=== PATIENT | male | born 1985 | race Caucasian/White ===

== ENCOUNTER 2020-11-02 06:08 | Day surgery (SDC) | payer OTHER ==
[2020-11-02] MEDS ORDERED: DEXMEDETOMIDINE 400 MCG/100 ML IV ONE (06:09)
[2020-11-02] MEDS ORDERED: ceFAZolin 2 GM/50 ML 2 GM/50 ML BAG IV ONE (06:30)
[2020-11-02] MEDS ORDERED: LACTATED RINGERS 1,000 ML IV ONE (06:47)
[2020-11-02] MEDS ORDERED: KETOROLAC 30 MG/ML VIAL ONE (07:06)
[2020-11-02] MEDS ORDERED: ROCURONIUM 50 MG/5 ML VIAL ONE (07:06)
[2020-11-02] MEDS ORDERED: LIDOCAINE-MPF 2% 5 ML VIAL ONE (07:06)
[2020-11-02] MEDS ORDERED: ROPIVACAINE 0.5% PF 20 ML AMPULE ONE (07:06)
[2020-11-02] MEDS ORDERED: PROPOFOL 200 MG/20 ML VIAL IVP ONE (07:06)
[2020-11-02] MEDS ORDERED: ONDANSETRON 4 MG/2 ML VIAL ONE (07:06)
[2020-11-02] MEDS ORDERED: DEXAMETHASONE 4 MG/ML VIAL ONE (07:06)
[2020-11-02] MEDS ORDERED: LIDOCAINE-PF 2% 10 ML AMP SUBQ ONE (07:06)
[2020-11-02] MEDS ORDERED: SODIUM CHLORIDE 0.9% 10 ML ONE (07:12)
--- NOTE | 2020-11-02 07:13 | ANESTHESIA ---
Pre-Anesthesia VS, & Labs - Diagnosis left knee acl tear, meniscus tear - Procedure left knee arthroscopy, meniscus repair or removal Vital Signs: Temp Pulse Resp BP Pulse Ox 36.4 C L 68 16 129/85 H 99 11/02/20 07:02 11/02/20 07:02 11/02/20 07:02 11/02/20 07:02 11/02/20 07:02 Height: 5 ft 9 in Weight (kg): 122.47 kg Body Mass Index: 39.9 BMI Classification: Obese - NPO >8 hours Home Medications and Allergies Home Medications: Ambulatory Orders No Known Home Medications 10/28/20 No Known Home Medications 10/28/20 Allergies/Adverse Reactions: Allergies Allergy/AdvReac Type Severity Reaction Status Date / Time No Known Drug Allergies Allergy Verified 10/28/20 10:54 Anes History & Medical History - Anesthetic History Anesthesia Complications: reports: No previous complications - Medical History Cardiovascular: reports: None Pulmonary: reports: Sleep apnea, CPAP use Gastrointestinal: reports: None Urinary: reports: None Musculoskeletal: reports: Other Endocrine/Autoimmune: reports: None Skin: reports: None - Surgical History Orthopedic: ACL reconstruction Exam General: Alert Dental: WNL Mouth Opening: Greater than 4 Fingerbreadths Mallampati classification: II Thyromental Distance: greater than 6 cm Respiratory: Lungs clear Cardiovascular: Regular rate Plan Anesthesia Type: General, Adductor Block Consent for Procedure(s) Verified and Reviewed: Yes Code Status: Attempt Resuscitation ASA classification: 2-Mild systemic disease Is this case an emergency?: No
[2020-11-02] MEDS ORDERED: MIDAZOLAM 2 MG/2 ML VIAL ONE (07:20)
[2020-11-02] MEDS ORDERED: fentaNYL 100 MCG/2 ML VIAL ONE ×3 (07:20→10:31)
[2020-11-02] MEDS ORDERED: BUPIVACAINE 0.25% PF 30 ML VIAL ONE (07:22)
[2020-11-02] MEDS ORDERED: EPINEPHrine 1 MG/ML AMP ONE (07:22)
[2020-11-02] MEDS ORDERED: ePHEDrine 50 MG/ML VIAL IVP PRN (08:15)
[2020-11-02] MEDS ORDERED: METOCLOPRAMIDE 10 MG/2 ML VIAL IVP PRN (08:15)
[2020-11-02] MEDS ORDERED: NALOXONE 0.4 MG/ML VIAL IVP PRN (08:15)
[2020-11-02] MEDS ORDERED: HYDROmorphone 0.5 MG/0.5 ML SYRINGE IVP PRN (08:15)
[2020-11-02] MEDS ORDERED: MORPHINE 2 MG/ML CARPUJECT IVP PRN (08:15)
[2020-11-02] MEDS ORDERED: fentaNYL 100 MCG/2 ML VIAL IVP PRN (08:15)
[2020-11-02] MEDS ORDERED: ONDANSETRON 4 MG/2 ML VIAL IVP PRN ×2 (08:15→13:04)
[2020-11-02] MEDS ORDERED: ATROPINE ABBOJECT 1 MG/10 ML SYRINGE IVP PRN (08:15)
[2020-11-02] MEDS ORDERED: EPINEPHrine 1 MG/ML AMP IR ONE (08:19)
[2020-11-02] MEDS ORDERED: BUPIVACAINE 0.25% PF 30 ML VIAL SUBQ ONE (08:19)
[2020-11-02] MEDS ORDERED: LACTATED RINGERS 1,000 ML IV SCH (09:00)
[2020-11-02] MEDS ORDERED: ALBUTEROL 1 PUFF INH ONE ×2 (10:31→12:44)
[2020-11-02] MEDS ORDERED: oxyCODONE 5 MG TABLET PO PRN (13:04)
--- NOTE | 2020-11-02 13:23 | OPERATIVE REPORT ---
Operative Report - Other Other Information/Narrative: Date of Surgery: 02 November 2020 Pre-Op Diagnosis: Left ACL graft failure. Left knee arthritis. Left knee instability. Procedure: Left knee arthroscopy with chondroplasty of the trochlea, patella, medial femoral condyle. Lateral meniscus debridement. Femoral tunnel drilling and bone grafting. Tibial tunnel drilling and bone grafting. Postop Diagnosis: Same as above. Add a lateral meniscus tear. Primary Surgeon: Bernabe Huerta Secondary Surgeon: None Complications: None Tourniquet Time: 130 minutes EBL: 150 mL Indication For Surgery: 35-year-old male who is status post left ACL reconstruction in 2015 with allograft. He has subsequently developed instability. On preoperative evaluation his tunnels appear to be in good position but they were dilated. He additionally has significant osteoarthritic changes within his knee. I discussed with him that his stiffness and pain are likely to progress due to his osteoarthritis, but his instability may improve with ACL reconstruction. He is unstable with daily activities and desires surgery. I explained to him that a single-stage surgery is possible but due to his dilation two-stage surgery is planned. The risks, benefits, and alternatives were discussed. Risks include pain, bleeding, infection, damage to nearby structures and cartilage, lack of symptom relief, need for further surgery, DVT, PE, stroke, and . Written consent was obtained. Examination Under Anesthesia: ROM equal to the contralateral side. Stable dial at 30 & 90 degrees. Stable to varus and valgus stressing at 0 & 30 degrees. Unstable Ziggy. Unstable Pivot shift. No mechanical sensation Arthroscopic Findings: Loose bodies -small soft cartilage loose bodies were found and removed. Synovium -normal Patella cartilage -2 full-thickness cartilage fissures with mostly stable cartilage surrounding it, the edges of the fissures were debrided with a shaver Trochlear cartilage -there was a 20 mm long by 5 mm at the top and 8 mm distal full-thickness cartilage lesion centrally, the unstable borders were trimmed. Medial femoral condyle cartilage -there was a large full-thickness lesion measuring 20 mm long by 10 to 12 mm wide in the medial femoral condyle at near full extension. Marginal osteophytes were present Medial tibial plateau cartilage -largely intact. There was some softening and partial thickness cartilage loss Medial meniscus -no tear. The root was intact. Anterior cruciate ligament -the graft was completely torn. The tunnels were drilled out and the tibial tunnel looked good at 11 mm in the femoral tunnel had good borders at 13 mm. The tunnels were grafted with bone dowels and DBX Posterior cruciate ligament -normal Lateral femoral condyle cartilage -there was an area of partial-thickness cartilage loss peripherally on the femoral condyle that measured 15 mm x 10 mm, the borders were stable and no debridement was necessary Lateral tibial plateau cartilage -there was partial loss posteriorly but it was largely intact Lateral meniscus -there was some degenerative change in the posterior horn with loose fragments and this was debrided. The lateral root was intact. Procedure in Detail: The patient was met in the pre-operative hold area on the day of the procedure. The operative extremity was signed and questions were answered. The patient was brought to the operating room and a general anesthetic was administered. Supine position was used and bony prominences were padded. An examination under anesthesia was performed. Standard prepping and draping was performed. A time out confirmed patient identification, laterality, procedure, allergies, antibiotics, and images. An Esmarch was used to exsanguinate the limb and the tourniquet was elevated to 250 mmHg. A standard diagnostic arthroscopy of the knee was performed through anterolateral and anteromedial portal sites. The anteromedial portal was created under direct visualization after localizing with a spinal needle. The findings can be found above. I then proceeded to use a shaver and biter to perform chondroplasty of the patella, trochlea, and medial femoral condyle. Images of this was taken. I then used the shaver to debride the unstable portions of the lateral meniscus. A bur was used to perform a notchplasty and takedown of the marginal osteophytes along the notch and overgrowth of tissue for visualization. I then performed an open approach to the tibia and identified the prior tibial tunnel and easily placed a Beath pin into the joint. The position of that pin was dialed in by sequentially exchanging with other pins until it was central within the ACL footprint. I then sequentially overdrilled this pin with 4, 6, 8, and 10 mm reamers, manipulating the pin as needed to keep the tunnel central. At 10 mm there remained some soft tissue within the tunnel and so I drilled it to 11 mm. At this point there was good bone in all 4 suazo. I removed all soft tissue and was happy with how this tunnel looked. A plug was then placed. I then moved to the femur and identified a prior sheath and peak screw construct. I believe that this was done from the accessory medial portal and I attempted to get the trajectory from that location. I was unable to get the trajectory. I tried to take the screw out but the plastic stripped as it was well fixed into the bone. I brought the femoral drill guide into the notch and centered at over the center of the screw. I set it to 115 degrees to try and match the trajectory of the screw. The guidepin was then brought in and it was found to skived off the edge of the screw. I then overdrilled that with 4 mm drill placing a posterior force on it to try and get it into the center of the screw. This was then overdrilled with a 6 and 8 mm drill again placing the posterior force and bringing the drill to near central on the screw. The screw had then been sufficiently destroyed and I was able to remove it through the tibial tunnel. I then drilled again with a 10 mm bit applying a posterior force to recenter it in the center of the prior tunnel. This left knee with soft tissue and inadequate suazo. I then sequentially drilled up with a size 11, 12, and 13 mm drill bits and this left knee with 4 good suazo for grafting. The posterior wall remained intact and a picture was taken of that. I then placed a 14 mm bone dowel over a guidewire and malleted it down until it was flush with the bone in the notch. A small protruding part was shaved back. 5 mm was left laterally and this was filled with DBX. I then placed a 12 mm bone dowel into the tibia and backfilled 15 mm with DBX. I was satisfied with the fixation of the bone plugs in the position. Final images were taken and all arthroscopic fluid and instruments were removed from the knee. The IT band was closed with 0 Vicryl, the soft tissues over the tibia were closed with 0 Vicryl as well. The skin was closed with 2-0 Vicryl in a running Monocryl. The arthroscopic incisions were closed with buried monocryl sutures. Steri strips were applied. 20 cc of 0.25% Marcaine without epinephrine was injected near the portal sites. A sterile dressing and compression stocking was placed. The patient was awakened and transferred to recovery in stable condition.
[2020-11-02 13:48] VITALS: BP 114/69
[2020-11-02] MEDS ORDERED: oxyCODONE 5 MG TABLET ONE (14:06)
--- NOTE | 2020-11-02 15:28 | ANESTHESIA POST OP EVALUATION ---
Anesthesia Post Eval - Post Anesthesia Eval Vitals: Last Vital Signs Temp 36.2 C L 11/02/20 13:30 Pulse 87 11/02/20 13:45 Resp 12 11/02/20 13:45 BP 114/69 11/02/20 13:45 Pulse Ox 96 11/02/20 13:45 CV Function Including HR & BP: positive: Stable Pain Control: positive: Satisfactory Nausea & Vomiting: positive: Negative Mental Status: positive: Patient Participates Respiratory Status: Airway Patent Hydration Status: Satisfactory Anesthesia Complications: positive: None
== END 2020-11-02 06:09 | disposition home or self-care (01) ==
LOC: SDS 06:08
PROVIDERS: ATTEND Orthopaedic Surgery
DX: M17.12 Unilateral primary osteoarthritis, left knee (principal); M25.362 Other instability, left knee; T84.410A Breakdown (mechanical) of muscle and tendon graft, initial encounter; S83.282A Other tear of lateral meniscus, current injury, left knee, initial encounter; E66.9 Obesity, unspecified; Z68.39 Body mass index [BMI] 39.0-39.9, adult; G47.30 Sleep apnea, unspecified
CPT/HCPCS: 27899; 29881; A9270; C1713; J0690; J7120